=== PATIENT | female | born 1990 | race Caucasian/White ===

== ENCOUNTER 2018-03-24 08:00 | Outpatient (CLI) | payer SELFPAY ==
[2018-03-24 15:55] LABS: MUDS CUTOFF CONCENTRATIONS CUTOFF CONC BELOW:
[2018-03-24 16:14] LABS: AMPHETAMINE SCREEN,URINE NEGATIVE (NEGATIVE); BENZODIAZEPINES SCREEN, URINE NEGATIVE (NEGATIVE); COCAINE SCREEN URINE NEGATIVE (NEGATIVE); METHADONE SCREEN, URINE NEGATIVE (NEGATIVE); METHAMPHETAMINES SCREEN, URINE NEGATIVE (NEGATIVE); OPIATE SCREEN, URINE NEGATIVE (NEGATIVE); OXYCODONE SCREEN, URINE NEGATIVE (NEGATIVE); TRICYCLIC ANTIDEPRESSANT,URINE NEGATIVE (NEGATIVE)
[2018-03-24 16:15] LABS: PROPOXYPHENE SCREEN, URINE NEGATIVE (NEGATIVE)
== END 2018-03-24 08:01 ==
LOC: LAB.R 08:00
PROVIDERS: ATTEND Nurse Practitioner Obstetrics & Gynecology
DX: Z36.9 Encounter for antenatal screening, unspecified (principal)
CPT/HCPCS: 80306

== ENCOUNTER 2018-04-25 11:52 | Outpatient (CLI) | payer BC ==
[2018-04-27 13:01] LABS: HSV 1 IGG TYPE SPECIFIC AB <0.90 index; HSV 2 IGG TYPE SPECIFIC AB 7.05 index
== END 2018-04-25 11:53 | disposition home or self-care (01) ==
LOC: LAB 11:52
PROVIDERS: ATTEND Nurse Practitioner Obstetrics & Gynecology
DX: Z36.9 Encounter for antenatal screening, unspecified (principal); Z11.3 Encounter for screening for infections with a predominantly sexual mode of transmission
CPT/HCPCS: 36415; 81599; 82950; 85018; 86695; 86696; 86850

== ENCOUNTER 2018-05-10 07:53 | Outpatient (CLI) | payer BC | END 2018-05-10 07:54 | disposition home or self-care (01) | LOC: LAB 07:53 | PROVIDERS: ATTEND Nurse Practitioner Obstetrics & Gynecology | DX: R73.02 Impaired glucose tolerance (oral) (principal) | CPT/HCPCS: 82951; 82952 ==

== ENCOUNTER 2018-05-11 07:55 | Outpatient (CLI) | payer BC | END 2018-05-11 07:56 | disposition home or self-care (01) | LOC: LAB 07:55 | PROVIDERS: ATTEND Nurse Practitioner Obstetrics & Gynecology | DX: R73.02 Impaired glucose tolerance (oral) (principal) | CPT/HCPCS: 36415; 82951; 82952 ==

== ENCOUNTER 2018-05-11 20:00 | Outpatient (CLI) | payer BC ==
--- NOTE | 2018-05-11 21:31 | Ultrasound Report ---
Reason: UTERINE SIZE-DATA DISCREPANCY, 3RD TRIMESTER Procedure Date: 05/11/2018 Accession Number: [id number] / [id number] Procedure: US - OB F/U or Repeat CPT Code: FULL RESULT: EXAM: COMPLETE OBSTETRICAL ULTRASOUND EXAM DATE: 05/11/2018 08:31 PM. CLINICAL HISTORY: Uterine size/date discrepancy. COMPARISON: None. TECHNIQUE: Real-time sonographic evaluation of the fetus performed by the agricultural appraiser. Multiple medical representative static images were saved for review. Additional transvaginal imaging to more accurately evaluate cervical length/placental position/etc. DATING: Established EGA 35 weeks 4 days with WILLY 06/11/2018 based on LMP of 09/04/2017. EGA 32 weeks 0 days with WILLY 07/06/2018 based on the current ultrasound. GENERAL EVALUATION Rodriges . Cardiac activity: 152 bpm. movement: Visualized. Presentation: Cephalic. Placenta: Anterior position. No evidence for previa. Umbilical cord: 3 vessel cord. Central placental cord origin. Amniotic fluid: Normal URIEL of 13.1 cm. MVP 5.2 cm. BIOMETRY Bi-Parietal Diameter (BPD): 8.2 cm, 33 weeks 0 days Head Circumference (HC): 28.7 cm, 31 weeks 3 days Abdominal Circumference (AC): 29.6 cm, 33 weeks 4 days Femur Length (FL): 6.4 cm, 32 weeks 6 days Estimated Weight: 2197 gm. MATERNAL STRUCTURES Uterus: Unremarkable. Cervix: Long and closed. Transabdominal length cm. Free fluid: None identified. IMPRESSION: 1. Rodriges live intrauterine with gestational age 32 weeks 0 days based on today's exam, less than expected compared to established EDC. 2. Anterior placenta and normal URIEL of 13.1 cm. RADIA
== END 2018-05-11 20:01 | disposition home or self-care (01) ==
LOC: DI 20:00
PROVIDERS: ATTEND Registered Nurse
DX: O26.843 Uterine size-date discrepancy, third trimester (principal); Z3A.32 32 weeks gestation of pregnancy; R73.02 Impaired glucose tolerance (oral)
CPT/HCPCS: 36415; 76816; 82951; 82952

== ENCOUNTER 2018-05-17 11:04 | Outpatient (CLI) | payer BC ==
[2018-05-17 11:35] VITALS: BP 121/77
== END 2018-05-17 11:54 | disposition home or self-care (01) ==
LOC: WFO 11:04 → FBP 11:06 → WFO 11:54
PROVIDERS: ATTEND Obstetrics & Gynecology
DX: O36.5930 Maternal care for other known or suspected poor fetal growth, third trimester, not applicable or unspecified (principal); Z3A.36 36 weeks gestation of pregnancy
CPT/HCPCS: 59025

== ENCOUNTER 2018-05-18 13:11 | Outpatient (CLI) | payer BC | END 2018-05-18 13:12 | LOC: LAB.R 13:11 | PROVIDERS: ATTEND Obstetrics & Gynecology | DX: Z36.85 Encounter for antenatal screening for Streptococcus B (principal) | CPT/HCPCS: 87081 ==

== ENCOUNTER 2018-05-20 08:45 | Outpatient (CLI) | payer BC ==
[2018-05-20 09:13] VITALS: BP 120/79
== END 2018-05-20 10:05 | disposition home or self-care (01) ==
LOC: WFO 08:45 → FBP 08:48 → WFO 10:05
PROVIDERS: ATTEND Obstetrics & Gynecology
DX: O36.5930 Maternal care for other known or suspected poor fetal growth, third trimester, not applicable or unspecified (principal); Z3A.36 36 weeks gestation of pregnancy
CPT/HCPCS: 59025

== ENCOUNTER 2018-05-23 09:41 | Outpatient (CLI) | payer BC ==
[2018-05-23 09:59] VITALS: BP 119/79
== END 2018-05-23 10:41 | disposition home or self-care (01) ==
LOC: WFO 09:41 → FBP 09:45 → WFO 10:41
PROVIDERS: ATTEND Registered Nurse
DX: O36.5930 Maternal care for other known or suspected poor fetal growth, third trimester, not applicable or unspecified (principal); Z3A.37 37 weeks gestation of pregnancy
CPT/HCPCS: 59025; 76816

== ENCOUNTER 2018-05-23 21:04 | Outpatient (CLI) | payer BC ==
--- NOTE | 2018-05-24 03:40 | Ultrasound Report ---
Reason: MATERN CARE FOR OTH OR SUSP POOR FETL LORENA, THIRD Procedure Date: 05/23/2018 Accession Number: [id number] / [id number] Procedure: US - OB F/U or Repeat CPT Code: FULL RESULT: EXAM: FOLLOW-UP OBSTETRICAL ULTRASOUND EXAM DATE: 05/23/2018 09:56 PM. CLINICAL HISTORY: For growth. Third trimester. COMPARISON: 05/11/2018. TECHNIQUE: Real-time sonographic evaluation of the fetus performed by the casting machine operator helper. Multiple veterans service representative static images were saved for review. DATING: EGA 33 weeks 5 days with WILLY 07/06/2018 based on prior ultrasound. EGA 37 weeks 2 days with WILLY 06/11/2018 based on LMP. EGA 33 weeks 3 days with WILLY 07/08/2018 based on the current ultrasound. GENERAL EVALUATION Rodriges . Cardiac activity: 140 bpm. movement: Visualized. Presentation: Cephalic. Placenta: Anterior position. Amniotic fluid: Normal. URIEL 9.9 cm. MVP 4 cm. BIOMETRY Bi-Parietal Diameter (BPD): 8.3 cm, 33 weeks 2 days Head Circumference (HC): 30.1 cm, 33 weeks 2 days Abdominal Circumference (AC): 30.6 cm, 34 weeks 2 days Femur Length (FL): 6.7 cm, 34 weeks 3 days Estimated Weight: 2405 gm, 6.6 percentile for 37 weeks 2 days. IMPRESSION: 1. Rodriges live intrauterine with gestational age 37 weeks 2 days based on LMP. 2. Estimated weight is 6.6 percentile. 3. Normal interval growth compared to 05/11/2018. RADIA
== END 2018-05-23 21:05 | disposition home or self-care (01) ==
LOC: DI 21:04
PROVIDERS: ATTEND Obstetrics & Gynecology
DX: O36.5930 Maternal care for other known or suspected poor fetal growth, third trimester, not applicable or unspecified (principal); Z3A.37 37 weeks gestation of pregnancy
CPT/HCPCS: 76816

== ENCOUNTER 2018-05-24 11:23 | Outpatient (CLI) | payer BC ==
--- NOTE | 2018-05-24 12:51 | Ultrasound Report ---
Reason: POOR GROWTH Procedure Date: 05/24/2018 Accession Number: [id number] / [id number] Procedure: US - OB Limited CPT Code: FULL RESULT: EXAM: LIMITED OBSTETRICAL ULTRASOUND EXAM DATE: 05/24/2018 11:43 AM. CLINICAL HISTORY: POOR GROWTH (EFW <10TH PERCENTILE AND AC <10TH PERCENTILE ON YESTERDAY'S EXAM). EVAL CORD DOPPLER. COMPARISON: OB F/U OR REPEAT 05/23/2018 OB F/U OR REPEAT 05/11/2018. TECHNIQUE: Real-time sonographic evaluation of the fetus performed by the chief operator hydroformer. Multiple printing supplies sales representative static images were saved for review. DATING: Established EGA 37-3/7 weeks with WILLY 06/11/2018. GENERAL EVALUATION Rodriges . Cardiac activity: 152 bpm. Amniotic fluid: Normal. UREIL 10.4 cm. MVP 4.3 cm. UMBILICAL CORD DOPPLER: Systolic/diastolic ratio 2.6, within normal limits. IMPRESSION: 1. Rodriges live intrauterine with gestational age 37-3/7 weeks based on established WILLY. 2. Normal umbilical cord Doppler. 3. Normal URIEL. RADIA The call report notification system was initiated by Dr. Mikael Lindsay at 12:44 hrs on 05/24/18. The above findings were discussed with Dr. Bartlett by Dr. Mikael Lindsay at 12:50 hrs on 05/24/18.
== END 2018-05-24 11:24 | disposition home or self-care (01) ==
LOC: DI 11:23
PROVIDERS: ATTEND Obstetrics & Gynecology
DX: Z36.4 Encounter for antenatal screening for fetal growth retardation (principal)
CPT/HCPCS: 76815

== ENCOUNTER 2018-06-05 08:00 | Inpatient (IN) | payer BC ==
[2018-06-05] MEDS ORDERED: ACETAMINOPHEN 325 MG TABLET PO PRN (08:47)
[2018-06-05] MEDS ORDERED: SODIUM CHLORIDE FLUSH 0.9% 10 ML SYRINGE IVP PRN (08:47)
[2018-06-05] MEDS ORDERED: fentaNYL 100 MCG/2 ML VIAL IVP PRN (08:47)
[2018-06-05] MEDS ORDERED: ONDANSETRON 4 MG/2 ML VIAL IVP PRN (08:47)
[2018-06-05] MEDS ORDERED: LACTATED RINGERS 1,000 ML IV SCH (09:00)
[2018-06-05] MEDS: miSOPROStol 100 MCG TABLET BC SCH ×4 (09:01→21:18)
[2018-06-05] MEDS: SODIUM CHLORIDE FLUSH 0.9% 10 ML SYRINGE IVP SCH (09:17)
[2018-06-05 09:26] LABS: BASOPHILS % (AUTO) 0.3 %; EOSINOPHILS # (AUTO) 0.1 10^3/uL (0.0-0.7); EOSINOPHILS % (AUTO) 1.7 %; HGB - HEMOGLOBIN 12.9 g/dL (12.0-16.0); LYMPHOCYTES # (AUTO) 1.6 10^3/uL (1.5-3.5); LYMPHOCYTES % (AUTO) 18.4 %; MEAN CORPUSCULAR HEMOGLOBIN 32.1 pg (27.0-31.0); MEAN CORPUSCULAR HGB CONC 34.9 g/dL (32.0-36.0); MEAN CORPUSCULAR VOLUME 91.9 fL (81.0-99.0); MEAN PLATELET VOLUME 9.3 fL (7.9-10.8); MONOCYTES # (AUTO) 0.5 10^3/uL (0.0-1.0); MONOCYTES % (AUTO) 5.5 %; NEUTROPHILS # (AUTO) 6.2 10^3/uL (1.5-6.6); NEUTROPHILS % (AUTO) 74.1 %; PLT - PLATELET COUNT 179 10^3/uL (130-450); RED BLOOD COUNT 4.01 10^6/uL (4.20-5.40); RED CELL DISTRIBUTION WIDTH 13.1 % (12.0-15.0); WHITE BLOOD COUNT 8.4 x10^3/uL (4.8-10.8)
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
[2018-06-05] MEDS ORDERED: ZOLPIDEM 5 MG TABLET PO PRN (18:02)
--- NOTE | 2018-06-05 18:02 | PROVIDER PROGRESS NOTE ---
Labor Progress Note - Uterine Monitoring Uterine Monitoring Mode: positive: External toco Contraction Frequency (min/apart): 2-4 Contraction Intensity: positive: Mild Uterine Resting Tone: positive: Soft - Monitoring Monitor Mode: positive: External ultrasound Heart Rate Baseline: 140 Heart Rate Variability: positive: Moderate (6-25 bmp) Accelerations: positive: Present, 15x15 Decelerations: positive: None Strip Review: positive: Category I - Labor Progress Note Labor Progress Note/Additional Text: S: Patient sitting comfortably in bed with supportive at the bedside. She reports slightly increased vaginal pressure and denies appreciation of uncomfortable uterine contractions. She denies VB or Lof. Reports +FM. Mood is good. O: BP 135/75, HR 79, RR 16 Contractions palpate mild every 2-4 minutes lasting 50-80 seconds with soft resting tone. FHR baseline 140s, moderate variability, positive accels, no decels SVE deferred A: 27yo @ 39.1wks gestation Oligohydramnios GBS negative FHR Category I Pre-induction cervical ripening with 50mcg BC misoprostol q 4 hours P: Continue pre-induction cervical ripening with 50mcg BC misoprostol q 4 hours Continuous monitoring Will order ambien for sleep tonight Reevaluate in AM or sooner per patient status change.
--- NOTE | 2018-06-05 23:06 | PROVIDER PROGRESS NOTE ---
Labor Progress Note - Uterine Monitoring Uterine Monitoring Mode: positive: External toco Contraction Frequency (min/apart): 2-4 Contraction Intensity: positive: Mild to moderate Uterine Resting Tone: positive: Soft - Monitoring Monitor Mode: positive: External ultrasound Heart Rate Baseline: 140 Heart Rate Variability: positive: Moderate (6-25 bmp) Accelerations: positive: Present, 15x15 Decelerations: positive: None Strip Review: positive: Category I - Vaginal Exam Dilation (in cm): 3 Effacement (%): 50 Station: -3 Cervical Position: Posterior - Labor Progress Note Labor Progress Note/Additional Text: S: Pt standing and the bedside and has been feeling increasingly uncomfortable. Reports pain 5/10 on a pain scale and describe pain as severe menstrual-like cramping. Pt requests Ambien for sleep to aid with discomfort and help her sleep. She declines an epidural at this time but states she will likely request an epidural in the morning prior to initiation of pitocin. supportive at the bedside. O: BP 133/79, HR 79, RR 18 Contractions palpate mild to moderate every 2-4 minutes lasting 40-80 seconds with soft resting tone FHR baseline 140s, moderate variability, + accels, no decels SVE 3/50/-3, posterior, medium consistency, vertex, membranes intact A: 27yo @ 39.1wks gestation Oligohydramnios Pre-induction cervical ripening with 50mcg BC misoprostol q 4 hours s/p 4 doses FHR Category I GBS negative P: Continue pre-induction cervical ripening with 50mcg BC misoprostol q 4 hours Continuous monitoring Ambien 10mg PO x 1 now for sleep Plan initiation of pitocin per protocol 06/06/2018 @ 0915 Epidural for pain management per patient request Anticipate change of status to inpatient with initiation of pitocin in the morning Will defer/limit SVE until morning Anticipate spontaneous vaginal delivery. Reviewed plan of care with patient, , and bedside RN whom agree, verbalize understanding, and deny questions or concerns at this time.
[2018-06-06] MEDS: SODIUM CHLORIDE FLUSH 0.9% 10 ML SYRINGE IVP SCH ×2 (00:07→05:29)
[2018-06-06] MEDS ORDERED: fent/BUPIV 2 MCG/0.125% 250 ML EP ONE (01:18)
[2018-06-06] MEDS ORDERED: TERBUTALINE 1 MG/ML VIAL SUBQ ONE (02:01)
[2018-06-06] MEDS ORDERED: diphenhydrAMINE INJ 50 MG/ML VIAL IVP PRN (02:24)
[2018-06-06] MEDS ORDERED: ePHEDrine 50 MG/ML VIAL IVP PRN (02:24)
[2018-06-06] MEDS ORDERED: NALOXONE 0.4 MG/ML VIAL IVP PRN (02:24)
[2018-06-06] MEDS ORDERED: NALBUPHINE 10 MG/ML AMP IVP PRN (02:24)
[2018-06-06] MEDS ORDERED: ONDANSETRON 4 MG/2 ML VIAL IVP PRN (02:24)
[2018-06-06] MEDS ORDERED: METOCLOPRAMIDE 10 MG/2 ML VIAL IVP PRN (02:24)
[2018-06-06] MEDS ORDERED: LACTATED RINGERS 500 ML IV ONE (02:24)
[2018-06-06] MEDS ORDERED: fent/BUPIV 2 MCG/0.125% 250 ML EP PRN (02:24)
[2018-06-06] MEDS ORDERED: OXYTOCIN/SODIUM CHLORIDE 500 ML IV ONE (02:41)
[2018-06-06] MEDS ORDERED: HYDROCORTISONE/PRAMOXINE 10 GM PR PRN (06:07)
[2018-06-06] MEDS ORDERED: OXYTOCIN/SODIUM CHLORIDE 250 ML IV ONE (06:07)
[2018-06-06] MEDS ORDERED: WITCH HAZEL/GLYCERIN 1 EACH MED..PAD TOP PRN (06:07)
[2018-06-06] MEDS ORDERED: ACETAMINOPHEN 325 MG TABLET PO PRN (06:08)
--- NOTE | 2018-06-06 06:30 | DELIVERY NOTE ---
Delivery Note - Labor Labor: positive: Other - Infant Delivery Method Delivery Method: positive: Spontaneous vaginal delivery - Presentation Presentation: positive: Vertex, DAVY - left occiput anterior - Nuchal Cord Nuchal Cord: positive: None - Amniotic Fluid Description Amniotic Fluid Description: positive: Clear - Episiotomy Type Episiotomy Type: positive: None - Laceration Laceration: positive: 1st degree - Suture Suture Type: positive: Vicryl Suture Size: positive: 3-0 - Delivery Outcome Delivery Outcome: positive: Livebirth - [place]: positive: Placed in direct skin contact with mother, Bulb syringe, Stimulated, Warmed, [place] used [place] sex: positive: Female - Cord Cord: positive: 3 vessels - Placenta Placenta: positive: Intact, Spontaneous - Estimated Blood Loss Estimated Blood Loss (in cc): 250 - Post Delivery Events Post Delivery Events: positive: No post delivery events - Delivery Comments (Free Text/Narrative) Delivery Comments (Free Text/Narrative): Labor: This 27yo @ 39.2 wks gestation by first trimester ultrasound presented on 06/05/2018 at 0800 for IOL secondary to intermittent oligohydramnios. Cervix was 1/25/-3, posterior, vertex. She was given 50mcg BC misoprostol q 4 hours for a total of 4 doses for pre-induction cervical ripening. Epidural placed upon maternal request. SROM a small amount of clear fluid at 0150. FHR pattern demonstrated a baseline of 140 with occasional early decelerations until 0153. At that time heart tones were unable to be reliably traced, patient was rotated, O2 was placed, and charge nurse notified to present to further evaluate the patient and was noted to be c/c/+1 at 0202. call or contact centre team leader CNM, construction assistant physician, and shopping inspector Dr. Gaxiola notified secondary to distress. FSE placed by OB charge nurse to reliably trace a prolonged deceleration which reached 50bpm for >60 seconds. Patient rotated to a hands and knees position and FHR returned to baseline with moderate variability. Pt experienced spontaneous urge to push. : Normal of viable female named Marcia Muhammad on 06/06/2018 at 0240. 's were 8 and 9 at 1 and 5 min respectively. The was placed on maternal abdomen, stimulated, dried, and placed skin to skin. The umbilical cord was noted to be short in length and infant able to reach only just to maternal umbilicus. The umbilical cord was allowed to stop pulsating at which time it was doubly clamped by CNM and cut by FOB. Cord segment cut for blood gases and cord blood was obtained. EBL 250mL. Fourth stage: Uterine fundus firm and there is no excessive bleeding. The perineum, vagina, and cervix were inspected and found to have first degree laceration which was repaired with a 4-0 vicryl on an SH in standard fashion under sterile conditions. Vaginal examination following repair were completed and tissues well approximated. initiated. Family bonding well. Both mother and baby were left in stable condition.
[2018-06-06] MEDS: IBUPROFEN 800 MG TABLET PO SCH ×3 (08:31→22:00)
[2018-06-07] MEDS: ACETAMINOPHEN 500 MG TABLET PO PRN ×2 (00:32→08:28)
[2018-06-07] MEDS: IBUPROFEN 800 MG TABLET PO SCH (04:49)
--- NOTE | 2018-06-07 08:42 | Discharge Plan ---
Discharge Plan Disposition: 01 Home, Self Care Condition: Good Diet: Regular Activity Restrictions: No Restrictions Shower Restrictions: No Driving Restrictions: No Weight Bearing: Full Weight No Smoking: If you smoke, Please STOP! Call for help. Follow-up with: Justine Horton CNM, ARNP [Provider Admit Priv/Credential] -
--- NOTE | 2018-06-07 08:47 | PROVIDER PROGRESS NOTE ---
Subjective - Subjective Subjective: FINAL PROGRESS NOTE: S: Bonding well with baby. without difficulty. Mild nipple discomfort which improves throughout duration of feed. Bleeding decreased and is minimal. Pain well controlled with oral medications. Mood is good. Tired but feels well supported. supportive at the bedside and they are anxious to go home today. O: BP 118/75, HR 79, T 36.3, RR 18 Heart RRR w/o M/G/R, lungs CTAB, abdomen soft a nontender with fundus firm at U- 2. Bilateral LE's trace edema. Perineum comfortable and repair with mild edema. A: 27yo -->P1 s/p TSVD of viable female infant 1st degree perineal laceration- intact P: Reviewed self care and warning signs. Advised 100mg PO Tylenol q 8 hours PRN pain and colage 100mg PO PRN constipation. She plans to initiate POPs for contraception . She will be discharged home today on PPD#1. She intends to f/u with myself at [facility] in 1 week for support visit, in 3 weeks for routine visit, and in 8 weeks for annual well woman exam. She verbalized understanding and agrees to above plan. She denies further questions or concerns today. Objective - Vital Signs/Intake & Output Vital Signs: Vital Signs x48h Temp Pulse Resp BP Pulse Ox 06/07/18 04:11 36.3 C L 79 18 118/75 98 Intake & Output: Intake & Output 06/04/18 06/05/18 06/06/18 06/07/18 23:59 23:59 23:59 23:59 Intake Total 360 1000 Output Total 875 Balance 360 125 - Lab Results Fish Bones: 06/05/18 09:10
[2018-06-07 12:30] VITALS: BP 128/69
--- NOTE | 2018-06-08 02:53 | DISCHARGE SUMMARY ---
Physician: MIGUEL Delaney DATE OF ADMISSION: 06/05/2018 DATE OF DISCHARGE: 06/07/2018 DIAGNOSES ON ADMISSION 1. A 27-year-old, G1, P0-0-0-0, at 39 and 1 week's gestation by first trimester ultrasound. 2. Oligohydramnios. 3. Pre-induction cervical ripening. DIAGNOSES ON DISCHARGE 1. A 27-year-old G1, P1-0-0-1, status post spontaneous vaginal delivery on 06/06/2018. 2. Normal recovery. HISTORY OF PRESENT ILLNESS: She is a patient of [facility] who presented on 06/05/2018 for pre-induction cervical ripening with misoprostol secondary to oligohydramnios. She was noted to have a cervix, which was 1 cm dilated, 25% effaced, -3 station in a vertex position. She was given pre- induction cervical ripening with 50 mcg of buccal misoprostol q4 hours for a total of 4 doses. Epidural was placed upon maternal request. Spontaneous rupture of membranes occurred at 0150 and was noted to be a small amount of clear fluid. She spontaneously delivered a viable female on 06/06/2018 at 0240. Apgars were 8 and 9 at one and five minutes respectively. EBL 250 mL. She was noted to have a first-degree laceration, which was repaired with a 4-0 Vicryl on an SH needle in standard fashion under sterile conditions. She has been doing well in her course. She is ambulating and tolerating a regular diet. She is urinating without difficulty and her lochia is normal. Her pain is well controlled with oral medications. She will be discharged home today on day #1 with instructions to take Tylenol for pain management. She intends to follow with myself at [facility] in 1 week for a support visit and then in 3 weeks for routine visit. She has been given precautions to call if she has any worsening fevers, chills, abdominal pain, increased bleeding, or foul smelling vaginal lochia. TD: 06/07/2018 18:07 GLORIA
== END 2018-06-07 11:30 | disposition home or self-care (01) | DRG 774 ==
LOC: WFO 08:00 → FBP 08:01 → WFO 08:46 → UNDOADMIN 08:47 → FBP 08:47 → OBSVTOIN 06-06 01:50 → UNDODISIN 06-07 11:30
PROVIDERS: ADMIT Registered Nurse; ATTEND Registered Nurse
PROC: 3E0P7VZ Introduction of Hormone into Female Reproductive, Via Natural or Artificial Opening (ICD-10-PCS; 2018-06-05)
PROC: 10E0XZZ Delivery of Products of Conception, External Approach (ICD-10-PCS; principal; 2018-06-06)
PROC: 0HQ9XZZ Repair Perineum Skin, External Approach (ICD-10-PCS; 2018-06-06)
PROC: 4A1H7FZ Monitoring of Products of Conception, Cardiac Rhythm, Via Natural or Artificial Opening (ICD-10-PCS; 2018-06-06)
PROC: 10H073Z Insertion of Monitoring Electrode into Products of Conception, Via Natural or Artificial Opening (ICD-10-PCS; 2018-06-06)
DX: O41.03X0 Oligohydramnios, third trimester, not applicable or unspecified (principal); O98.313 Other infections with a predominantly sexual mode of transmission complicating pregnancy, third trimester; Z3A.39 39 weeks gestation of pregnancy; Z37.0 Single live birth; O76 Abnormality in fetal heart rate and rhythm complicating labor and delivery; O70.0 First degree perineal laceration during delivery
CPT/HCPCS: 85025; 96374; 96375